=== PATIENT | male | born 1970 | race Two or more races ===

== ENCOUNTER 2020-02-14 09:16 | Emergency (ER) | payer SELFPAY ==
[2020-02-14 11:29] VITALS: BP 147/81
[2020-02-14] MEDS ORDERED: cefTRIAXone SOD 1,000 MG VL IM ONE (11:30)
== END 2020-02-14 11:51 | disposition home or self-care (01) ==
LOC: ER 09:16
DX: J18.9 Pneumonia, unspecified organism (principal); J02.9 Acute pharyngitis, unspecified
CPT/HCPCS: 71046; 96372; 99283; J0696